=== PATIENT | female | born 1985 | race Caucasian/White ===

== ENCOUNTER 2020-01-06 12:10 | Observation (INO) | payer BC, MEDICAID, SELFPAY ==
[2020-01-06] VITALS (19 sets, daily range): BP systolic 108–130; BP diastolic 70–87; PULSE 74–99; RESP 16–28; TEMP 36.2–37.1; O2SAT 96–100; BMI 29.2
--- NOTE | 2020-01-06 12:39 | ED_ITS ---
HPI - Abdominal Pain General: Chief Complaint: Abdominal Pain Stated Complaint: Vaginal Bleeding/ Time Seen by Provider: 01/06/20 12:31 History of Present Illness: HPI narrative: 34-year-old female who was directed to the emergency room by Dr. Izabel Hopson from her office. She had an abnormal quant and also has a right ovarian mass that it previously measured 9 cm is now measuring 10 cm with free fluid she been to a couple of other local hospitals and been dismissed Dr. Hopson is concerned she may have a ectopic . He is having worsening abdominal pain at this point. MD elicited complaint: abdominal pain Pertinent past history: other (Positive test) Onset (ago): day(s) Pain Consistency: constant Location: Suprapubic and Pelvis Quality: cramping Radiation: back Migration to: no migration Exacerbating factors: movement Relieving factors: rest Associated Symptoms: Reports bloating and GI cramping; Denies anorexia, belching, change in stool character, chills, coffee ground emesis, constipation, diarrhea, dyspepsia, dysuria, excessive flatus, fever(s), heartburn, hematochezia, hematuria, hematemesis, fecal incontinence, loose stools, melena, nausea, poor appetite and vomiting Review of Systems Const: Denies: fever(s) or chills ENMT: Denies: throat pain, ear or mastoid pain, nasal discharge or nasal congestion Card: Denies: chest pain, edema, dyspnea on exertion or orthopnea Resp: Denies: dyspnea, productive cough or non-productive cough GI: Reports: bloating and GI cramping; Denies: nausea, vomiting, hematemesis, coffee ground emesis, heartburn, diarrhea, constipation, belching, excessive flatus, fecal incontinence, change in stool character, hematochezia or melena : Denies: dysuria or hematuria Skin/Breast: Denies: rash or pruritus PFSH ED PFSH: Medical History Acute cystitis 01/06/2020: States on antibiotic since 01/01. Right tubal without intrauterine Treated by laparoscopic right salpingectomy on 01/06/2020 Surgical History H/O hand surgery Had surgery on a finger. H/O unilateral salpingectomy (01/06/20) Laparoscopic right salpingectomy for treatment of tubal . Performed by Dr. Naqvi at [facility] in [place], [place] H/O wisdom tooth extraction Family History Mother Uterine cancer Grandfather CAD (coronary artery disease) Social History Smoking and tobacco status: never smoked Alcohol intake: current Alcohol intake frequency: few times a month Substance/Drug Use: never Physical Exam Const: COMMON NORMALS: no acute distress GENERAL APPEARANCE: cooperative and comfortable ORIENTATION/CONSCIOUSNESS: Yes awake, Yes oriented to person, Yes oriented to place and Yes oriented to time HENMT: COMMON NORMALS: normocephalic, atraumatic and hearing grossly normal bilaterally HEAD & SCALP: normocephalic and atraumatic Neck/C-Spine: COMMON NORMALS: no JVD Resp: COMMON NORMALS: normal respiratory effort, No retractions, No use of accessory muscles and clear to auscultation bilaterally AUSCULTATION: clear to auscultation bilaterally Cardio: COMMON NORMALS: no JVD, regular rate, regular rhythm and No murmurs present (Cardio) RATE: regular rate RHYTHM: regular rhythm GI: COMMON NORMALS: No hepatosplenomegaly present AUSCULTATION: Yes normoactive bowel sounds PALPATION: Yes Tenderness to palpation present (GI) (Prepubic and pelvic pain), No Guarding due to palpation present (GI) and Yes No hepatosplenomegaly present Extremity: COMMON NORMALS: normal to inspection, capillary refill normal, no clubbing, cyanosis or edema, no calf tenderness and no pedal edema Neuro: SENSORIUM/ORIENTATION: Yes oriented to person, Yes oriented to place and Yes oriented to time Skin: COMMON NORMALS: no rashes or lesions noted GENERAL SKIN EXAM: no rashes or lesions noted Course Vital Signs: Vital signs: Vital Signs Temperature 98.2 F 01/07/20 12:59 Pulse Rate 83 01/07/20 12:59 Respiratory Rate 14 01/07/20 12:59 Blood Pressure 94/61 01/07/20 12:59 Pulse Oximetry 97 01/07/20 12:59 MDM - Abdominal Pain MDM Narrative: Medical decision making narrative: Evidence of an ectopic on ultrasound as well as blood in the pelvis discussed with Dr. Naqvi, he will be taking patient directly to surgery. Lab Data: Labs: Lab Results 01/06/20 01/06/20 01/06/20 Range/Units 12:49 12:49 12:49 WBC 8.4 (4.0-10.0) 10^3/ uL RBC 3.71 L (4.1-5.3) 10^6/u L Hgb 10.7 L (11.5-15.3) g/dL Hct 33.5 L (37.0-47.0) % MCV 90.3 (81-99) fL MCH 28.8 (28.0-34.0) pg MCHC 31.9 (30.0-36.0) g/dL RDW 12.2 (12.1-15.1) % Plt Count 401 H (130-400) 10^3/c mm MPV 10.7 H (7.4-10.4) fL Neut % (Auto) 78.8 % Lymph % (Auto) 11.8 % [place] % (Auto) 7.7 % Eos % (Auto) 1.0 % Baso % (Auto) 0.5 % Neut # (Auto) 6.64 (1.8-7.7) 10^3/u L Lymph # (Auto) 1.0 (0.8-4.8) 10^3/u L [place] # (Auto) 0.7 (0.2-0.9) 10^3/u L Eos # (Auto) 0.1 (0.0-0.8) 10^3/u L Baso # (Auto) 0.0 (0.0-0.1) 10^3/u L Nucleated RBC % (a uto) 0 % Nucleated RBCs # 0.0 /100WBC Sodium 132 L (136-145) mmol/L Potassium 4.3 (3.5-5.1) mmol/L Chloride 98 (98-107) mmol/L Carbon Dioxide 26 (22-29) mmol/L Anion Gap 12.3 (5-19) BUN 12 (6-20) mg/dL Creatinine 0.4 L (0.5-0.9) mg/dL GFR Calculation 185.0 H (90-130) mL/min Glucose 93 (65-115) mg/dL Calculated Osmolal ity 273 L (285-295) mOsm/k g Calcium 9.0 (8.5-10.5) mg/dL Total Bilirubin 0.5 (0.15-1.2) mg/dL AST 22 (0-32) U/L ALT 15 (0-33) U/L Alkaline Phosphata se 83 (35-105) IU/L Total Protein 7.2 (6.6-8.7) g/dL Albumin 4.1 (3.5-5.2) g/dL Globulin 3.1 (1.3-4.6) g/dL Ser , [place] i-Qnt 47.00 mIU/mL Blood Type B Positive Rho(D) Type Positive Antibody Screen Negative Discharge Plan Discharge Admit Provider: Arnoldo Naqvi Clinical Impression: Right tubal without intrauterine , Acute cystitis Condition: Stable Discharge Orders: Discharge Order (Routine); Ordered 01/07/20 Ordered By: Arnoldo Naqvi Discharge Diet: Regular Discharge Activity: Limit activity as instructed Interventions: ED Discharge Assessment Last Done: 01/06/20 14:03 ED Charges Last Done: 01/06/20 14:03 Discharge Date/Time: 01/06/20 14:04 Coding Level of Care Code ED Bicycle Taxi Driver for Heidy Ansari
[2020-01-06 13:07] LABS: Basophils % 0.5 %; Eosinophils # 0.1 10^3/uL (0.0-0.8); Hematocrit 33.5 % (37.0-47.0); Hemoglobin 10.7 g/dL (11.5-15.3); Lymphocytes % 11.8 %; Mean Corpuscular HGB Conc 31.9 g/dL (30.0-36.0); Mean Corpuscular Hemoglobin 28.8 pg (28.0-34.0); Mean Corpuscular Volume 90.3 fL (81-99); Mean Platelet Volume 10.7 fL (7.4-10.4); Monocytes # 0.7 10^3/uL (0.2-0.9); Monocytes % 7.7 %; Neutrophils # 6.64 10^3/uL (1.8-7.7); Neutrophils % 78.8 %; Nucleated Red Blood Cells % 0 %; Platelet Count 401 10^3/cmm (130-400); Red Blood Count 3.71 10^6/uL (4.1-5.3); Red Cell Distribution Width 12.2 % (12.1-15.1); White Blood Count 8.4 10^3/uL (4.0-10.0)
--- NOTE | 2020-01-06 13:12 | PC.NURSE ---
Pt moved to room 4, report given to ANGELA Bernal. Dr Naqvi at bedside.
[2020-01-06 13:31] LABS: Alanine Aminotransferase 15 U/L (0-33); Albumin Level 4.1 g/dL (3.5-5.2); Alkaline Phosphatase 83 IU/L (35-105); Anion Gap 12.3 (5-19); Aspartate Amino Transferase 22 U/L (0-32); Blood Urea Nitrogen 12 mg/dL (6-20); Carbon Dioxide 26 mmol/L (22-29); Chloride 98 mmol/L (98-107); Globulin 3.1 g/dL (1.3-4.6); Glucose 93 mg/dL (65-115); Osmolality Calculated 273 mOsm/kg (285-295); Potassium 4.3 mmol/L (3.5-5.1); Sodium 132 mmol/L (136-145); Total Bilirubin 0.5 mg/dL (0.15-1.2); Total Protein 7.2 g/dL (6.6-8.7)
--- NOTE | 2020-01-06 13:51 | PM.HP ---
Providers/Chief Complaint Chief Complaint: Vaginal Bleeding/ History of Present Illness Wen Owens is a 34 year old female 5, para 4-0-0-4 who presented to the ER with abdominal pain and possible ectopic . She reports that she has had bleeding off and on for the last couple weeks. On Thursday, 12/29, she reported having heavy bleeding and went to [place] where she was evaluated and sent home. She has been following with Dr. Hopson in [place] since that time. Dr. Hopson had reported that she had a positive hCG with a quantitative hCG of 809 on 01/04/2020. She has had several ultrasounds performed. And had been noted to have an enlarging right adnexal mass. This was thought to represent either a ovarian torsion or ruptured ectopic . She was sent to the ER for further evaluation today. Patient reports that she has had light bleeding off and on today. She has been having pain in the lower abdomen which is localized into the right lower quadrant/pelvic area. It ranges from a cramping to a sharp severe stabbing pain. She denied radiation of the pain into her back. She states the pain is worse with sitting up and better with lying down. She denied any pain with deep breathing. She denied any lightheadedness or dizziness. Review of Systems Const: Denies: fever(s) or chills ENMT: Denies: throat pain or nasal congestion Card: Denies: chest pain, palpitations or lightheadedness Resp: Denies: dyspnea, productive cough, non-productive cough or wheezing GI: Reports: abdominal pain and nausea; Denies: vomiting, diarrhea or constipation : Reports: urinary frequency and vaginal bleeding; Denies: difficulty voiding, dysuria, urinary urgency, genital pruritis or vaginal discharge Neuro: Denies: headache(s) or dizziness Psych: Denies: anxiety or depression Endo: Denies: cold intolerance or hot flashes [place]/Lymph: Denies: easy bruising or easy bleeding Medications/Allergies Home Medications Medication Instructions Recorded Confirmed Last Taken Type Vitamin D3 1 tab PO DAILY 01/06/20 01/06/20 Unknown History cephalexin [Keflex] 500 mg PO BID 01/06/20 01/06/20 01/06/20 History Allergies Allergy/AdvReac Type Severity Reaction Status Date / Time promethazine [From Phenergan] Allergy ALGY-Anaphy Verified 01/06/20 13:05 laxis PFSH Acute PFSH: Medical History (Updated 01/06/20 @ 14:11 by Arnoldo Naqvi MD) Acute cystitis 01/06/2020: States on antibiotic since 01/01. Surgical History (Updated 01/06/20 @ 14:03 by Arnoldo Naqvi MD) H/O hand surgery Had surgery on a finger. H/O wisdom tooth extraction Family History (Updated 01/06/20 @ 14:04 by Arnoldo Naqvi MD) Mother Uterine cancer Grandfather CAD (coronary artery disease) Social History (Updated 01/06/20 @ 14:05 by Arnoldo Naqvi MD) Smoking and tobacco status: never smoked Alcohol intake: current Alcohol intake frequency: few times a month Substance/Drug Use: never Female Reproductive History: : 5 Vitals/I&O/Wt Last Vital Signs Temp 98.7 F 01/06/20 12:22 Pulse 96 01/06/20 12:56 Resp 16 01/06/20 12:56 BP 108/80 01/06/20 12:56 Pulse Ox 96 01/06/20 12:56 Weight last 48 hrs Weight 165 lb Physical Exam Const: COMMON NORMALS: no acute distress, average body habitus, alert and well nourished GENERAL APPEARANCE: well developed ORIENTATION/CONSCIOUSNESS: Yes oriented to person, Yes oriented to place and Yes oriented to time Neck/C-Spine: COMMON NORMALS: Thyroid normal GENERAL: Yes trachea midline THYROID: Thyroid normal Resp: COMMON NORMALS: normal respiratory effort and clear to auscultation bilaterally AUSCULTATION: clear to auscultation bilaterally Cardio: COMMON NORMALS: regular rate, regular rhythm, No gallops present (Cardio), No murmurs present (Cardio) and No rub (Cardio) RATE: regular rate RHYTHM: regular rhythm GI: COMMON NORMALS: Soft to palpation, No hepatosplenomegaly present and no masses AUSCULTATION: Yes normoactive bowel sounds PALPATION: Yes Soft to palpation, Yes Tenderness to palpation present (GI) (Moderate right lower quadrant/pelvic tenderness), Yes Guarding due to palpation present (GI) (Voluntary), Yes No hepatosplenomegaly present, No Hernia present and Yes Rebound tenderness present (Right lower quadrant/pelvic area) : EXTERNAL FEMALE EXAM: No Hernia present Neuro: SENSORIUM/ORIENTATION: Yes alert, Yes oriented to person, Yes oriented to place and Yes oriented to time Psych: COMMON NORMALS: normal affect MOOD & AFFECT: Yes euthymic mood Skin: COMMON NORMALS: no rashes or lesions noted GENERAL SKIN EXAM: no rashes or lesions noted Data : 01/06/20 12:49 01/06/20 12:49 Other Labs: 01/06/2020: 12: 49 hC Outside Lab 01/04/2020: hC US OB: I personally reviewed and interpreted this imaging study as follows: My impression: Right adnexal mass with hypoechoic area within the mass present with free fluid with debris present within the fluid. Some of this suspicious for clot. No intrauterine seen. A&P Assessment and plan (1) Acute right lower quadrant pain: Status: Acute (2) Adnexal mass: Status: Acute (3) Positive test: Status: Acute Additional A&P Information Patient presents with acute right lower quadrant pain with a right adnexal mass and positive test. The adnexal mass has been enlarging per report from Dr. Hopson who has been following her with the . Based upon ultrasound today, she has free fluid in the abdomen with findings suggestive of clot. No intrauterine was seen on ultrasound. hCG has dropped from 109 to 47 over the last 2 days. This would indicate either a miscarriage having occurred or a tubal having occurred. The appearance of the adnexal mass is more suspicious for a tubal . Possible ovarian torsion or ruptured ovarian cyst also must be considered. This information and findings were discussed with the patient. Recommendations to proceed to surgical evaluation were discussed. I recommended a laparoscopy with the possibility of removing tube and ovary. Discussed with patient the possibility of having to open the abdomen, laparotomy. Risks of the surgery including bleeding to the point of needing a blood transfusion, infection, and injury to intra-abdominal organs including bowel, bladder, blood vessels, nerves, and ureters were discussed. Possible stay in the hospital after surgery was discussed. Questions were answered. Patient agrees to proceed to surgical evaluation and treatment. Patient to be scheduled for: Laparoscopy, possible salpingo-oophorectomy, possible laparotomy. Attestations Medical Necessity Statement*: Patient with suspected ectopic , going to the OR. Coding Level of Care Code Acute Certified Fraud Examiner for Heidy Ansari Diagnoses Acute right lower quadrant pain R10.31 Adnexal mass N94.89 Positive test Z32.01
--- NOTE | 2020-01-06 14:17 | ANES.PREANE2 ---
Pre-Anesthetic Assessment Pre-Anesthetic Assessment: Height/Weight: Height 1.6 m Weight 74.843 kg Temp Pulse Resp BP Pulse Ox 98.7 F 83 18 117/78 100 01/06/20 12:22 01/06/20 13:54 01/06/20 13:54 01/06/20 13:54 01/06/20 13:54 Preop Diagnosis: possible ectopic Proposed Procedure: Operation Date: 01/06/20 14:30 Proposed Procedures p Laparoscopic Ectopic (Right) - Arnoldo Naqvi MD Familial anesthetic complications: none Was Beta Ramon taken within 24 hours: N/A Last intake: Intake Last Liquid Date 01/06/20 Last Liquid Time 09:15 Last Solid Date 01/06/20 Last Solid Time 08:30 Social: Social History: Tobacco (occassional) Exam: Pre-Anes Outpt Exam: alert, oriented x 3, clear to auscultation bilaterally and regular rate & rhythm Airway: Submandibular: WNL Cervical ROM: WNL MP: 2 Dentition: Full History/ROS: No significant history except as noted and No significant complaints CV/HEM: CV/HEM: None reported : : UTI Hepatic: Hepatic: None reported GI: GI: GERD Metabolic: Metabolic: None reported Musc/skel: Musc/skel: None reported Neuropsych: Neuropsych: None reported Anesthetic Plan: ASA status: 2E Anesthesia: General PFSH Anesthesia PFSH: Medical History (Updated 01/06/20 @ 14:11 by Arnoldo Naqvi MD) Acute cystitis 01/06/2020: States on antibiotic since 01/01. Surgical History (Updated 01/06/20 @ 14:03 by Arnoldo Naqvi MD) H/O hand surgery Had surgery on a finger. H/O wisdom tooth extraction Family History (Updated 01/06/20 @ 14:04 by Arnoldo Naqvi MD) Mother Uterine cancer Grandfather CAD (coronary artery disease) Social History (Updated 01/06/20 @ 14:05 by Arnoldo Naqvi MD) Smoking and tobacco status: never smoked Alcohol intake: current Alcohol intake frequency: few times a month Substance/Drug Use: never Female Reproductive History: : 5 Data Anesthesia CBC & Chem 7: 01/06/20 12:49 01/06/20 12:49 Other Labs: Laboratory Results - last 48 hr 01/06/20 01/06/20 01/06/20 12:49 12:49 12:49 WBC 8.4 RBC 3.71 L Hgb 10.7 L Hct 33.5 L MCV 90.3 MCH 28.8 MCHC 31.9 RDW 12.2 Plt Count 401 H MPV 10.7 H Neut % (Auto) 78.8 Lymph % (Auto) 11.8 [place] % (Auto) 7.7 Eos % (Auto) 1.0 Baso % (Auto) 0.5 Neut # (Auto) 6.64 Lymph # (Auto) 1.0 [place] # (Auto) 0.7 Eos # (Auto) 0.1 Baso # (Auto) 0.0 Nucleated RBC % (auto) 0 Nucleated RBCs # 0.0 Sodium 132 L Potassium 4.3 Chloride 98 Carbon Dioxide 26 Anion Gap 12.3 BUN 12 Creatinine 0.4 L GFR Calculation 185.0 H Glucose 93 Calculated Osmolality 273 L Calcium 9.0 Total Bilirubin 0.5 AST 22 ALT 15 Alkaline Phosphatase 83 Total Protein 7.2 Albumin 4.1 Globulin 3.1 Ser , Semi-Qnt 47.00 Blood Type B Positive Rho(D) Type Positive Antibody Screen Negative Cardiac Studies: No Data to Display
[2020-01-06] MEDS: citric acid-sodium citrate 30 mL UDC PO (14:23)
[2020-01-06] MEDS: sodium chloride 0.9% 1,000 ML 30 ML IV (14:26)
--- NOTE | 2020-01-06 16:28 | PM.OP ---
Operative Report Date of procedure: January 06, 2020 Pre-op Diagnosis: possible ectopic Post-op Diagnosis: Rupture right tubal Procedure Done: Laparoscopic right salpingectomy for treatment of tubal Specimens removed/disposition: Right tube with ectopic Surgeon: Arnoldo Naqvi Manager Of Manufacturing: None Anesthesia: General Estimated blood loss (mL): 400 (blood and clots) IV fluids (mL): 1,500 Urine output (mL): 200 Complications: None Findings: Clots and blood in abdomen. Walled off area with small bowel adhesions to anterior abdominal wall, sealing off the pelvis. Ruptured, right tubal Brief History: Patient is a 34-year-old white female 5, para 4-0-0-4 who presented to the ER with abdominal pain with possible ectopic . On presentation, she stated she had been bleeding off and on for the last couple weeks. On Thursday, 12/29, she reported heavy bleeding and went to [place] where she was evaluated and sent home. She has been followed by Dr. Hopson in [place] since that time. She had an ultrasound today with Dr. Hopson which showed fluid in the pelvis, right adnexal mass which had enlarged, and no intrauterine . Dr. Hopson had requested that she go to the hospital for further evaluation and possible surgery, patient did not want to go back to [place] and as a result, presented to [facility] ER. On review of her ultrasound performed today, she had free fluid in the pelvis with what appeared to be clot present and a mass in the right adnexal region. She had localized right lower quadrant/pelvic pain. Based upon these findings I was suspicious for ruptured ctopic . I discussed this with the patient and she is presenting for surgical evaluation. Procedure: Patient was taken to the operating room where general anesthesia was obtained. She was prepped and draped in usual sterile fashion in dorsal supine position with legs in Estrada style stirrups. Sequential compression boots had been placed prior to starting the case. Rawls catheter was inserted. Weighted speculum was placed in the vagina and cervix was grasped with a single-tooth tenaculum. ZUMI was then inserted without difficulty. Within the lower edge of the navel, the skin was injected with 1% lidocaine with epinephrine. Skin incision was made with the knife in the lower edge and a size 10 trocar and sheath were inserted under direct visualization using an Optiview type technique. Upon removal of the trocar, scope was reinserted confirming intra-abdominal placement. Blood was identified upon entry into the abdominal cavity. Abdomen was inflated and the belly was inspected. Patient was noted to have small amount of blood in the upper abdomen. At the pelvis area, she had adhesions between the small bowel and omentum to the anterior abdominal wall with blood visualized behind the thin adhesions. In the left lower quadrant lateral to the inferior epigastric vessels, the skin was injected with 1% lidocaine with epinephrine. Skin incision was made with a knife and 5 mm trocar and sheath were inserted under direct visualization. The adhesions between the bowel, omentum, and anterior abdominal wall were able to be easily taken down bluntly. Upon doing this multiple well-formed clots were encountered. No further adhesions were identified below the initial band of adhesions. A second site was placed in the midline approximately 3 cm above the pubic symphysis. Skin incision was made with a knife and a size 10 trocar and sheath inserted under direct visualization. Using a large bore suction, the clots were broken up and suctioned out of the abdomen. The uterus was initially uncovered and identified. During this process the ovaries and tubes were also eventually identified. Approximately midway along the right tube was an area of obvious rupture of the tube with the surrounding tube being approximately 3 times bigger in diameter than the rest of the tube. No active bleeding was seen from the rupture site. In the right lower quadrant lateral to the inferior epigastric vessels, the skin was injected with 1% lidocaine with epinephrine. Skin incision was made with a knife and a 5 mm trocar and sheath were inserted under direct visualization. Using the Voyant sealing device, the mesosalpinx was sealed and cut and carried up to the corner of the uterus. The fallopian tube was then sealed at the corner of the uterus and completely excised. The tube was too large to bring out through the 10 mm site. As a result a laparoscopic pouch was passed through the site and the tube placed in the pouch. This was then brought up through through the incision after it enlargement of the fascial incision at the suprapubic site. The trocar was then reinserted. Clots were then further broken down and suction from the abdomen, removing the clots from the posterior cul-de-sac. However, not all of the clot could be removed due to the dense nature of the clots and being well adherent to peritoneal structures. The area of dissection was irrigated and thoroughly inspected. It was noted to be hemostatic. The left tube and ovary were normal in appearance. The right ovary was normal in appearance. Uterus was normal in appearance. Using Endo Close needle, 3 stitches of 0 Vicryl suture were passed through the fascia and brought out on the contralateral side of the incision at the suprapubic site. When tied, these closed the fascial defect well and allowed pneumoperitoneum to be maintained. The abdomen was then deflated and the rest the sleeves removed. Skin was reapproximated using 4-0 Vicryl suture. Skin glue was applied to the sites. ZUMI was removed. There was minimal bleeding from the cervix at the tenaculum site. Sponge and needle counts were correct. Drains: None. Postoperative Status: Patient was transferred to recovery room in satisfactory condition.
--- NOTE | 2020-01-06 16:35 | SUR.PHASEI ---
1632 PATIENT TO PACU FROM OR. RR EVEN AND UNLABORED. CAST CATH IN PLACE. DRESSING TO ABDOMEN, CDI.
[2020-01-06] MEDS: ondansetron 2 mg/ML SDV 2 mL 4 MG IVP ×2 (16:38→16:44)
[2020-01-06] MEDS: metoclopramide 5 mg/mL SDV 2 mL 10 MG IVP ×2 (16:47→17:01)
[2020-01-06] MEDS: sodium chloride 0.9% 1,000 ML 30 ML (16:56)
--- NOTE | 2020-01-06 17:32 | SUR.PHASEI ---
1717 PATIENT TO OB FROM PACU. RR EVEN AND UNLABORED. PATIENT CONTINUES TO C/O NAUSEA. TOLERATING CRACKERS AND SPRITE. RATES PAIN 5/10, DECLINED PAIN MEDS DUE TO NAUSEA. AMBULATORY FROM GURNEY TO BED WHEN ARRIVING TO OB.
[2020-01-06] MEDS: morphine 4 mg/mL SDV 1 mL IVP ×2 (17:45→18:45)
[2020-01-06] MEDS: scopolamine 1.5 Patch 1 PATCH TRANSDERMA (19:16)
[2020-01-06] MEDS: ketorolac 30 mg/mL INJ IVP (22:36)
[2020-01-06] MEDS: dextrose 5%-lactated ringers 1,000 ML 125 ML IV (22:45)
[2020-01-07 00:40] VITALS: BP 110/74; PULSE 84; RESP 18; TEMP 36.6; O2SAT 96
--- NOTE | 2020-01-07 00:44 | PC.NURSE ---
SCD Pump placed at bedside and turned on. Pt. was encouraged to use IS breathing device.
[2020-01-07] MEDS: ondansetron 2 mg/ML SDV 2 mL 4 MG IVP (01:20)
[2020-01-07] MEDS: ondansetron 2 mg/ML SDV 2 mL 4 MG (01:27)
[2020-01-07] MEDS: HYDROcodone-acetaminophen 5-325 mg Tablet PO (01:30)
[2020-01-07 03:15] VITALS: BP 95/63; PULSE 67; RESP 16; TEMP 36.9; O2SAT 96
[2020-01-07] MEDS: ketorolac 30 mg/mL INJ IVP (04:51)
--- NOTE | 2020-01-07 05:42 | PC.NURSE ---
Blood draw wasn't successful and lab was called to attempt.
[2020-01-07 06:05] LABS: Hematocrit 27.9 % (37.0-47.0); Hemoglobin 8.9 g/dL (11.5-15.3); Mean Corpuscular HGB Conc 31.9 g/dL (30.0-36.0); Mean Corpuscular Hemoglobin 28.8 pg (28.0-34.0); Mean Corpuscular Volume 90.3 fL (81-99); Mean Platelet Volume 10.7 fL (7.4-10.4); Platelet Count 334 10^3/cmm (130-400); Red Blood Count 3.09 10^6/uL (4.1-5.3); Red Cell Distribution Width 12.3 % (12.1-15.1); White Blood Count 10.8 10^3/uL (4.0-10.0)
--- NOTE | 2020-01-07 09:53 | P.DS_ITS ---
Discharge Providers Date of Admission: 01/06/20 16:35 Date of Discharge: January 07, 2020 Attending Provider at Admission: Arnoldo Naqvi MD Attending Provider at Discharge: Arnoldo Naqvi MD Diagnoses at Discharge Discharge Diagnosis (1) Right tubal without intrauterine : Status: Acute Problem details: Treated by laparoscopic right salpingectomy on 01/06/2020 (2) Acute right lower quadrant pain: Status: Acute Reason for Visit Reason for Visit: Vaginal Bleeding/ Hospital Course Hospital Course: Patient is a 34-year-old female 5, now para 4-0-1-4 who had presented to the ER on 01/06/2020 with abdominal pain and possible ectopic . She had been sent in from Dr. Hopson due to her symptoms and finding on ultrasound earlier today performed at Dr. Hopson's office. Patient was being followed for a right adnexal mass with no intrauterine identified on ultrasound. Patient had been having abdominal pain and intermittent vaginal bleeding. Patient reported having been previously evaluated at [facility] in [place]. Because of her pain and findings on ultrasound, I had recommended that she proceed to surgical evaluation for suspected ectopic . Patient had agreed to this and was taken to the OR. She had a laparoscopic right salpingectomy for treatment of a right tubal . She had been found to have the omentum and small bowel having sealed off the pelvic area with well formed, organized clots filling the pelvis. An ectopic was identified with the right tube with the right tube having split open. There was no active bleeding from the tube at the time of the surgery. Her right tube was removed and clots were evacuated from the pelvis. Following surgery, patient was having significant nausea requiring parenteral antiemetics. As the anesthesia further wore off, she started having more pain issues also requiring parenteral medications. As a result she was kept through the night for nausea and pain management. Postoperative Day 1, 01/07/2020 Patient reports feeling much better this morning. She reports that the pain pills have controlled her pain adequately this morning. She denies any nausea or vomiting through most of the night and this morning. She does have a scopolamine patch on. She reports tolerating liquids this morning. She reports having lightheadedness with initial rising, but this has resolved. She denies problems with urination. She denies chest pains or difficulty breathing. Physical Exam: See below Plan Surgical findings were reviewed with her this morning. She is doing as expected this morning. Since the nausea and vomiting has currently resolved and her pain is controlled on oral medications, she is being discharged to home. Discharge instructions were discussed with her. Pain medication use at home was discussed. She was also instructed to leave the scopolamine patch on at this time and remove it Thursday morning. I recommend follow-up in approximately 2 weeks with either myself or with Dr. Hopson. Physical Exam Const: COMMON NORMALS: no acute distress, average body habitus, alert and well nourished GENERAL APPEARANCE: well developed ORIENTATION/CONSCIOUSNESS: Yes oriented to person, Yes oriented to place and Yes oriented to time Resp: COMMON NORMALS: normal respiratory effort and clear to auscultation bilaterally AUSCULTATION: clear to auscultation bilaterally Cardio: COMMON NORMALS: regular rate, regular rhythm, No gallops present (Cardio), No murmurs present (Cardio) and No rub (Cardio) RATE: regular rate RHYTHM: regular rhythm GI: COMMON NORMALS: Soft to palpation, No hepatosplenomegaly present and no masses INSPECTION: Yes incision (Laparoscopy sites are clean, dry, and intact. Skin glue present. Bruising present at the suprapubic site.) AUSCULTATION: Yes normoactive bowel sounds PALPATION: Yes Soft to palpation, Yes Tenderness to palpation present (GI) (Mild lower abdominal tenderness with palpation.), Yes No hepatosplenomegaly present and No Hernia present : EXTERNAL FEMALE EXAM: No Hernia present Extremity: COMMON NORMALS: no clubbing, cyanosis or edema and no calf tenderness Neuro: SENSORIUM/ORIENTATION: Yes alert, Yes oriented to person, Yes oriented to place and Yes oriented to time Psych: COMMON NORMALS: normal affect MOOD & AFFECT: Yes euthymic mood Urinary Catheter Management^: Rawls: Cath Placed During This Visit: yes Urinary Catheter Date of Insertion: 01/06/20 Urinary Catheter Time of Insertion: 16:00 Discharge Data Data Completed and Pending: Pending at discharge Category Date Time Status ES surgery / GI i mages Routine Exams 01/06/20 14:55 Taken Retype for Patiet s ABO/Rh Routine Lab 01/06/20 13:14 Ordered Pathology: Surgic al [PTH] Routine Pth 01/06/20 16:34 Ordered Labs from last 24 hours 01/07/20 01/06/2020 05:52 12:49 12:49 WBC 10.8 H 8.4 RBC 3.09 L 3.71 L Hgb 8.9 L 10.7 L Hct 27.9 L 33.5 L MCV 90.3 90.3 MCH 28.8 28.8 MCHC 31.9 31.9 RDW 12.3 12.2 Plt Count 334 401 H MPV 10.7 H 10.7 H Neut % (Auto) 78.8 Lymph % (Auto) 11.8 [place] % (Auto) 7.7 Eos % (Auto) 1.0 Baso % (Auto) 0.5 Neut # (Auto) 6.64 Lymph # (Auto) 1.0 [place] # (Auto) 0.7 Eos # (Auto) 0.1 Baso # (Auto) 0.0 Nucleated RBC % (a uto) 0 Nucleated RBCs # 0.0 Sodium 132 L Potassium 4.3 Chloride 98 Carbon Dioxide 26 Anion Gap 12.3 BUN 12 Creatinine 0.4 L GFR Calculation 185.0 H Glucose 93 Calculated Osmolal ity 273 L Calcium 9.0 Total Bilirubin 0.5 AST 22 ALT 15 Alkaline Phosphata se 83 Total Protein 7.2 Albumin 4.1 Globulin 3.1 Ser , [place] i-Qnt 47.00 Blood Type Rho(D) Type Antibody Screen 01/06/20 12:49 WBC RBC Hgb Hct MCV MCH MCHC RDW Plt Count MPV Neut % (Auto) Lymph % (Auto) [place] % (Auto) Eos % (Auto) Baso % (Auto) Neut # (Auto) Lymph # (Auto) [place] # (Auto) Eos # (Auto) Baso # (Auto) Nucleated RBC % (a uto) Nucleated RBCs # Sodium Potassium Chloride Carbon Dioxide Anion Gap BUN Creatinine GFR Calculation Glucose Calculated Osmolal ity Calcium Total Bilirubin AST ALT Alkaline Phosphata se Total Protein Albumin Globulin Ser , [place] i-Qnt Blood Type B Positive Rho(D) Type Positive Antibody Screen Negative Vitals: Last Vital Signs Temp 98.5 F 01/07/20 03:15 Pulse 67 01/07/20 03:15 Resp 16 01/07/20 03:15 BP 95/63 01/07/20 03:15 Pulse Ox 96 01/07/20 03:15 Discharge Plan Discharge Patient Disposition: Home Condition: Stable Prescriptions: New hydrocodone-acetaminophen 5-325 mg Tablet 1 - 2 tab PO Q6H PRN (Reason: Moderate To Severe Pain) Qty: 30 RF: 0 ibuprofen 800 mg Tablet 800 mg PO TID PRN (Reason: pain) Qty: 30 RF: 0 Continued Keflex 500 mg Capsule 500 mg PO BID RF: 0 Vitamin D3 1 tab PO DAILY RF: 0 Discharge Orders: Discharge Order (Routine); Ordered 01/07/20 Ordered By: Arnoldo Naqvi Referrals: Arnoldo Naqvi MD [Physician] - 2 weeks Discharge Diet: Regular Discharge Activity: Limit activity as instructed Patient Instructions: Ectopic , Ectopic (DC), Laparoscopic Salpingo-oophorectomy (DC), OB Discharge Report, OB Laproscopic Surgery - [facility] Activity Restrictions/Additional Instructions: May follow-up with either myself, Dr. Naqvi, or with Dr. Hopson in 2 weeks. Patient to leave the scopolamine patch on and remove it on Thursday morning, 01/08. Discharge Attestations Time Spent in Discharge Care*: less than 30 min Quality Metrics Clinical Quality Measures During this hospital stay, did patient experience: None Coding Level of Care Code Acute Narrative Writer for Chg Fwd Diagnoses Right tubal without intrauterine O00.101 Acute right lower quadrant pain R10.31
[2020-01-07] MEDS: docusate sodium 100 mg Capsule PO (09:59)
[2020-01-07 11:12] VITALS: BP 106/71; PULSE 66; RESP 16; TEMP 36.9; O2SAT 97
[2020-01-07 12:59] VITALS: BP 94/61; PULSE 83; RESP 14; TEMP 36.8; O2SAT 97
== END 2020-01-07 13:09 | disposition home or self-care (01) ==
LOC: ER 12:35 → OR 13:44 → OBGYN 16:37
PROVIDERS: Family Medicine; Admitting Provider Obstetrics & Gynecology; Visit Provider Obstetrics & Gynecology
PROC: (CPT 58661; 2020-01-06 14:30)
DX: O00.101 Right tubal pregnancy without intrauterine pregnancy (principal)
CPT/HCPCS: 59151; 12345; 36415; 80053; 84702; 85025; 85027; 86850; 86900; 88305; 96360; 96361; 96375; 99282; 99285; G0378; J0131; J1885; J2270; J2405; J2704; J2710; J2765; J3010; J3490; J7030

== ENCOUNTER → 2020-11-15 13:37 | Outpatient (BNVA) | payer MEDICAID, SELFPAY | PROVIDERS: Visit Provider Obstetrics & Gynecology | DX: Z36.87 Encounter for antenatal screening for uncertain dates (principal) | CPT/HCPCS: 76805 ==

== ENCOUNTER → 2021-02-25 10:42 | Outpatient (BNVA) | payer MEDICAID, SELFPAY | PROVIDERS: Visit Provider Obstetrics & Gynecology | DX: Z34.80 Encounter for supervision of other normal pregnancy, unspecified trimester (principal) | CPT/HCPCS: 81000; 87081 ==

== ENCOUNTER → 2021-03-11 09:56 | Outpatient (BNVA) | payer MEDICAID, SELFPAY | PROVIDERS: Visit Provider Obstetrics & Gynecology | DX: Z34.90 Encounter for supervision of normal pregnancy, unspecified, unspecified trimester (principal); Z20.822 Contact with and (suspected) exposure to COVID-19 | CPT/HCPCS: 81000; 87086; 87635 ==

== ENCOUNTER → 2021-03-14 09:28 | Outpatient (BNVA) | payer MEDICAID, SELFPAY | PROVIDERS: Visit Provider Obstetrics & Gynecology | DX: R39.9 Unspecified symptoms and signs involving the genitourinary system (principal) | CPT/HCPCS: 81000; 87086 ==

== ENCOUNTER 2021-03-17 10:10 | Inpatient (IN) | payer MEDICAID, SELFPAY ==
[2021-03-17] VITALS (58 sets, daily range): BP systolic 82–151; BP diastolic 39–86; PULSE 75–109; RESP 18; O2SAT 97–100; BMI 34.0
[2021-03-17 11:48] LABS: Basophils % 0.3 %; Eosinophils # 0.1 10^3/uL (0.0-0.8); Eosinophils % 0.9 %; Hematocrit 34.9 % (37.0-47.0); Hemoglobin 11.3 g/dL (11.5-15.3); Lymphocytes # 1.2 10^3/uL (0.8-4.8); Lymphocytes % 14.9 %; Mean Corpuscular HGB Conc 32.4 g/dL (30.0-36.0); Mean Corpuscular Hemoglobin 28.1 pg (28.0-34.0); Mean Corpuscular Volume 86.8 fl (81-99); Mean Platelet Volume 10.3 fL (7.4-10.4); Monocytes # 0.5 10^3/uL (0.2-0.9); Monocytes % 6.4 %; Neutrophils # 6.15 10^3/uL (1.8-7.7); Neutrophils % 77.1 %; Nucleated Red Blood Cells % 0 %; Platelet Count 312 10^3/cmm (130-400); Red Blood Count 4.02 10^6/uL (4.1-5.3)
[2021-03-17] MEDS: lactated ringers 1,000 ML 999 ML IV (12:43)
--- NOTE | 2021-03-17 12:59 | P.ANESASSM_ITS ---
Pre-Anesthetic Assessment Pre-Anesthetic Assessment: Height/Weight: Height 1.61 m Weight 88.646 kg Pulse BP 83 115/69 03/17/21 11:47 03/17/21 11:47 Preop Diagnosis: labor pain Proposed Procedure: epidural Familial anesthetic complications: none Was Beta Ramon taken within 24 hours: N/A Was Clonidine taken within 24 hours: N/A Exam: Pre-Anes Outpt Exam: alert, oriented x 3, clear to auscultation bilaterally and regular rate & rhythm Airway: Submandibular: WNL Cervical ROM: WNL MP: 1 Dentition: Full Pulmonary: Pulmonary: None reported CV/HEM: CV/HEM: Anemia : : None reported Hepatic: Hepatic: None reported GI: GI: None reported Metabolic: Metabolic: None reported Musc/skel: Musc/skel: None reported Neuropsych: Neuropsych: Anxiety, Bipolar and Depression Anesthetic Plan: ASA status: 2 Anesthesia: Regional (specify below) Risk of > 500 ml blood loss (7ml/kg in children): No Meds/Allergies Current Medications: Current Medications Generic Name Dose Route Start Last Admin Trade Name Freq PRN Reason Stop Dose Admin Lactated Ringer's 1,000 mls @ 999 m ls/hr 03/17/21 12:33 03/17/21 12:43 Lactated Ringers IV 999 mls/hr .Q1H1M PRN Administration See label comment s PFSH Anesthesia PFSH: Medical History Acute cystitis 01/06/2020: States on antibiotic since 01/01. Anxiety Bipolar disorder GERD (gastroesophageal reflux disease) Right tubal without intrauterine Treated by laparoscopic right salpingectomy on 01/06/2020 Surgical History H/O hand surgery Had surgery on a finger. H/O unilateral salpingectomy (01/06/20) Laparoscopic right salpingectomy for treatment of tubal . Performed by Dr. Naqvi at [facility] in [place], [place] H/O wisdom tooth extraction Family History Mother Uterine cancer Bleeding disorder factor 5 Hyperlipidemia Hypertension Grandfather No problems noted. Family/Other Bleeding disorder Maternal Aunts x2-factor 5 Hyperlipidemia Maternal Aunt Hypertension Maternal Aunt Grandmother Bleeding disorder Maternal Clotting disorder Maternal Hypertension Maternal Denies family history of Diabetes CAD (coronary artery disease) Chronic kidney disease (CKD) Cancer Stroke Social History Smoking and tobacco status: never smoked Alcohol intake: current Alcohol intake frequency: few times a month Data Anesthesia CBC & Chem 7: 03/17/21 11:22 Other Labs: Laboratory Results - last 48 hr 03/17/21 11:22 WBC 8.0 RBC 4.02 L Hgb 11.3 L Hct 34.9 L MCV 86.8 MCH 28.1 MCHC 32.4 RDW 15.0 Plt Count 312 MPV 10.3 Neut % (Auto) 77.1 Lymph % (Auto) 14.9 [place] % (Auto) 6.4 Eos % (Auto) 0.9 Baso % (Auto) 0.3 Neut # (Auto) 6.15 Lymph # (Auto) 1.2 [place] # (Auto) 0.5 Eos # (Auto) 0.1 Baso # (Auto) 0.0 Nucleated RBC % (auto) 0 Nucleated RBCs # 0.0 Cardiac Studies: No Data to Display
--- NOTE | 2021-03-17 13:28 | PM.OPHPUD ---
Labor & Delivery H&P Update Date of Procedure: March 17, 2021 Date H&P Performed: 03/11/21 H&P update information: I have reviewed H&P completed within last 30 days, I have examined patient prior to procedure, Changes to prior documentation as noted here and H&P is in [facility] EMR on date indicated Changes to previous documentation: Patient is having regular contractions and cervix is 6 cm 75% and -1 station-may be an early/active labor Admission Diagnosis: Preop diagnosis: labor pain
--- NOTE | 2021-03-17 13:31 | P.ANES_ITS ---
Anesthesia Procedures Procedure/Date: 03/17/21 epidural Procedure Narrative: epidural complete, bolus given, epidural pump initiated with FURNACE MAINTENANCE education given, vitals taken during procedure using OBIX system and satisfactory throughout, patient admits to decrease pain, report of procedure to OB RN Epidural: Time Out Performed: Yes Consents Signed: Procedure Consent Consent: requested by attending/covering physician, from patient, risks and benefits reviewed and patient agrees to proceed Lumbar Level: L3-L4 Epidural position: sitting Epidural procedure: sterile prep of area, 1% lidocaine to numb the area (3 mL), 18 g needle, negative for paresthesia passed, neg for paresthesia, test dose given, 1.5% xylocaine 1:200k epi (5 mL), 0.2% Ropivacaine bolus ml (5 mL), placed PCEA, no systemic response, sterile dressing applied, L.U.D. no apparent complications and 0.2% Ropiavacaine @ mls/hr (13 mL/hr)
[2021-03-17] MEDS: dextrose 5%-lactated ringers 1,000 ML 125 ML IV (14:34)
--- NOTE | 2021-03-17 17:19 | P.PCNOB_ITS ---
Delivery Note: Date of delivery: March 17, 2021 - PRE-DELIVERY DIAGNOSIS: 35-year-old 6 para 4-0-1-4 at 39 weeks and 1 days gestation GBS negative Multiparity desiring permanent sterilization-plan for interval sterilization Acid reflux on medication POST-DELIVERY DIAGNOSIS: Vaginal delivery on 03/17/2021 PROCEDURE: Vaginal delivery on 03/17/2021 ANESTHESIA: Epidural DELIVERING PHYSICIAN: Neda Branham FACOG PRE-DELIVERY COURSE: Ms. Owens is a 35-year-old 6 para 4-0-1-4 at 39 weeks and 1 day who presented to labor and delivery on 03/17/2021 for elective induction of labor at 10 AM . She had reported Kwame Lazcano contraction but overall appeared comfortable. On exam she was however noted to be 6 to 7 cm 70% and -3 station and she was admitted to labor and delivery in active labor. She was observed and she initially made minimal change however over the course of the next 4 to 5 hours had regular contractions. She wanted an epidural before she even started hurting an epidural was placed per her request. She continued to have contractions and was 9 cm at 3 PM. Artificial rupture of membranes was performed at this time with thick meconium fluid. She made rapid cervical change and was fully dilated at 4:20 PM and was set up in lithotomy position ready to push. tracing was category 1 thus far. DELIVERY NOTE: She was set up in lithotomy position and was pushing effectively. She was noted to be +3 station and continued pushing well. The head delivered in BECKY position, no nuchal cord was present. The shoulders and rest of the body followed with her next push. The baby's mouth and nose were suctioned and the baby was placed on the mother's belly. Once cord pulsations stopped the cord was clamped and cut. The placenta delivered spontaneously intact with membranes and was discarded. The fundus was noted to be firm and well contracted. The lower segment however was pretty boggy and uterine massage was done and 800 mcg of Cytotec was given rectally and with this uterine tone improved.. The vagina and cervix were inspected and no cervical or sulcal lacerations were noted. The perineum was intact. Baby boyKojo born at 5:03 PM on 03/17/2021 with 9/10, weighing 8 pounds 9 ounces, 3880 g, 21 inches long. Placenta was delivered spontaneously intact at 5/6 p.m. Cotyledons were intact , centrally inserted umbilical cord with 3 vessels noted. Estimated blood loss 250 mL. Complications-stable condition. This documentation was created by [employer] mental health unit lead psychologist software (known for inherent mental health unit lead psychologist error). Every effort was made to assure accuracy of mental health unit lead psychologist. Any obvious errors or omissions should be clarified with the author of the document. History History History 6 Term 4 Miscarriages/Ectopic 1 0 Living Children 4 Coding Level of Care Code Acute Senior Medical Director for Heidy Ansari
[2021-03-17] MEDS: benzocaine-menthol 78 gm Canister 1 SPRAY TOPICAL (19:59)
[2021-03-17] MEDS: HYDROcodone-acetaminophen 5-325 mg Tablet PO (20:20)
[2021-03-17] MEDS: ibuprofen 800 mg tablet PO (20:21)
[2021-03-18 00:50] VITALS: BP 120/62; PULSE 86; TEMP 36.2
[2021-03-18] MEDS: HYDROcodone-acetaminophen 5-325 mg Tablet PO (02:08)
[2021-03-18 03:11] VITALS: BP 108/60; PULSE 64
[2021-03-18 06:17] LABS: Hemoglobin 10.6 g/dL (11.5-15.3); Mean Corpuscular HGB Conc 32.1 g/dL (30.0-36.0); Mean Corpuscular Hemoglobin 28.3 pg (28.0-34.0); Mean Corpuscular Volume 88.2 fl (81-99); Mean Platelet Volume 10.4 fL (7.4-10.4); Platelet Count 252 10^3/cmm (130-400); Red Blood Count 3.74 10^6/uL (4.1-5.3); Red Cell Distribution Width 14.7 % (12.1-15.1); White Blood Count 11.5 10^3/uL (4.0-10.0)
[2021-03-18 07:15] VITALS: BP 108/75; PULSE 71; RESP 16; TEMP 36.9
[2021-03-18] MEDS: ibuprofen 800 mg tablet PO ×3 (10:03→22:11)
[2021-03-18] MEDS: prenatal vitamin Capsule 1 CAP PO (10:03)
[2021-03-18] MEDS: docusate sodium 100 mg Capsule PO ×2 (10:03→18:39)
[2021-03-18 11:15] VITALS: BP 110/72; PULSE 74; RESP 16; TEMP 36.7
--- NOTE | 2021-03-18 12:40 | PM.PN ---
Subjective Subjective: Interval history: SUBJECTIVE: Ms. Owens is doing well today. States that she is a little sore but denies any pain. She reports overall feeling well and denies nausea, vomiting, fever, chills and shortness of breath. She reports moderate bleeding and does report voiding without any difficulty. OBJECTIVE/PHYSICAL EXAM: Gen.: No acute distress Heart: S1-S2 heard, regular rate and rhythm Lungs: Clear to auscultation bilaterally Abdomen: Soft, fundus firm below umbilicus, Legs: No calf tenderness, trace bilateral pitting pedal edema. ASSESSMENT AND PLAN: 35-year-old 6 para 5-0-1-5 status post vaginal delivery on 03/17/2021 -Continue routine care. -Encourage ambulation and p.o. pain medication as needed -Anticipate discharge home tomorrow as patient was like to stay until tomorrow since she has a long drive back to her house. Vitals/I&O/Wt Last Vital Signs Temp 98.4 F 03/18/21 07:15 Pulse 71 03/18/21 07:15 Resp 16 03/18/21 07:15 BP 108/75 03/18/21 07:15 Pulse Ox 99 03/17/21 14:34 03/17/21 03/18/21 03/18/21 22:59 06:59 14:59 Output Total 1750 / 1750 150 / 1900 Balance -1750 / -750 -150 / -900 Weight last 48 hrs Weight 195 lb 6.878 oz Data : 03/18/21 06:07 Attestations Medical Necessity Statement*: Patient will need to stay 1-2 more midnights to recover from delivery Coding Level of Care Code Acute Wood Boatbuilder Apprentice for Chg Coty
[2021-03-18 16:00] VITALS: BP 112/77; PULSE 77; RESP 16; TEMP 36.6
[2021-03-18 22:15] VITALS: BP 108/76; PULSE 73; TEMP 36.3
[2021-03-19 04:58] VITALS: BP 97/61; PULSE 65; TEMP 36; TEMP 36.2
--- NOTE | 2021-03-19 07:49 | ANE.PACU2 ---
Inpatient post-anesthesia follow up: Airway intact: Yes Vital signs: Temperature 97.2 F Pulse Rate 65 Respiratory Rate 16 Blood Pressure 97/61 Pulse Oximetry 99 Oxygen Delivery Me thod Room Air Oxygen Flow Rate Fraction of Inspir ed Oxygen Hydration adequate: Yes Nausea and vomiting: No Pain level: 1 Mental status: Baseline Additional Comments: EMR review
[2021-03-19] MEDS: docusate sodium 100 mg Capsule PO (09:21)
[2021-03-19] MEDS: ibuprofen 800 mg tablet PO (09:21)
[2021-03-19] MEDS: prenatal vitamin Capsule 1 CAP PO (09:21)
[2021-03-19 12:23] VITALS: BP 98/61; PULSE 62
--- NOTE | 2021-03-19 15:11 | PM.OBGYDC ---
Discharge Providers [facility] SECURITY Date of Admission: 03/17/21 10:10 Date of Discharge: 03/19/21 Attending Provider at Admission: Neda Clement MD Attending Provider at Discharge: Neda Clement MD PRE-DELIVERY DIAGNOSIS: 35-year-old 6 para 4-0-1-4 at 39 weeks and 1 days gestation GBS negative Multiparity desiring permanent sterilization-plan for interval sterilization Acid reflux on medication POST-DELIVERY DIAGNOSIS: Vaginal delivery on 03/17/2021 PROCEDURE: Vaginal delivery on 03/17/2021 ANESTHESIA: Epidural DELIVERING PHYSICIAN: Neda Branham FACOG PRE-DELIVERY COURSE: Ms. Owens is a 35-year-old 6 para 4-0-1-4 at 39 weeks and 1 day who presented to labor and delivery on 03/17/2021 for elective induction of labor at 10 AM . She had reported Carrington Lazcano contraction but overall appeared comfortable. On exam she was however noted to be 6 to 7 cm 70% and -3 station and she was admitted to labor and delivery in active labor. She was observed and she initially made minimal change however over the course of the next 4 to 5 hours had regular contractions. She wanted an epidural before she even started hurting an epidural was placed per her request. She continued to have contractions and was 9 cm at 3 PM. Artificial rupture of membranes was performed at this time with thick meconium fluid. She made rapid cervical change and was fully dilated at 4:20 PM and was set up in lithotomy position ready to push. tracing was category 1 thus far. DELIVERY NOTE: She was set up in lithotomy position and was pushing effectively. She was noted to be +3 station and continued pushing well. The head delivered in BECKY position, no nuchal cord was present. The shoulders and rest of the body followed with her next push. The baby's mouth and nose were suctioned and the baby was placed on the mother's belly. Once cord pulsations stopped the cord was clamped and cut. The placenta delivered spontaneously intact with membranes and was discarded. The fundus was noted to be firm and well contracted. The lower segment however was pretty boggy and uterine massage was done and 800 mcg of Cytotec was given rectally and with this uterine tone improved.. The vagina and cervix were inspected and no cervical or sulcal lacerations were noted. The perineum was intact. Baby boy, Kojo born at 5:03 PM on 03/17/2021 with 9/10, weighing 8 pounds 9 ounces, 3880 g, 21 inches long. Placenta was delivered spontaneously intact at 5/6 p.m. Cotyledons were intact , centrally inserted umbilical cord with 3 vessels noted. Estimated blood loss 250 mL. Complications-stable condition. HOSPITAL COURSE: She underwent an uncomplicated vaginal delivery on 03/17/2021 . She did well on day 0 and was ambulating well, tolerating regular diet, voiding freely, passing flatus. She was breast-feeding without difficulty and bonding well with her son. Pain was well-controlled with by mouth pain medication. She denied nausea, vomiting, fever, chills, shortness of breath, leg pain. She had moderate vaginal bleeding. On day # 1 she continued to do well with stable vital signs and stable hemoglobin at 10.6. She wanted to stay another day she lives too far away from the hospital and did not want to drive late at night. She continued to do well with stable vital signs and denied any problems.. She was discharged home on day 2 in a stable condition. Warning signs for endometritis, mastitis, DVT/PE were reviewed with her. Post delivery activity restrictions were also reviewed with her at all her questions were answered to her satisfaction. She plans with sterilization for contraception. Given her history of previous ectopic I recommended total salpingectomy as opposed to sterilization and she preferred total salpingectomy. Medicaid consents had been incorrectly filled out previously and as a result repeat Medicaid consents were signed on 03/19/2021 and scanned into the clinic chart. Patient will be scheduled for an outpatient visit for preoperative for surgery. She will follow-up for visit with Dr. Hopson EXAM AT DISCHARGE: Gen.: No acute distress Heart: S1-S2 heard, regular rate and rhythm Lungs: Clear to auscultation bilaterally Abdomen: Soft, fundus firm below umbilicus Legs: No calf tenderness, trace bilateral pitting pedal edema pedal edema. CONDITION AT DISCHARGE: Stable This documentation was created by [employer] applied behavior science specialist software (known for inherent applied behavior science specialist error). Every effort was made to assure accuracy of applied behavior science specialist. Any obvious errors or omissions should be clarified with the author of the document. Reason for Visit Reason for Visit: induction of labor Information Peripartum Data: Delivery Method: Vaginal History History History 6 Term 4 Miscarriages/Ectopic 1 0 Living Children 4 Discharge Data Vitals: Last Vital Signs Temp 97.2 F L 03/19/21 04:58 Pulse 62 03/19/21 12:23 Resp 16 03/18/21 16:00 BP 98/61 03/19/21 12:23 Pulse Ox 99 03/17/21 14:34 Discharge Plan Discharge Patient Disposition: Home Condition: Stable Prescriptions: New ibuprofen 800 mg tablet 800 mg PO Q8H Qty: 30 RF: 0 docusate sodium 100 mg Capsule 100 mg PO BID PRN (Reason: constipation) Qty: 30 RF: 0 Continued Plus 29 mg iron- 1 mg tablet 1 tab PO DAILY RF: 0 Discontinued Ferretts 325 mg (106 mg iron) tablet 325 mg PO BID Qty: 60 RF: 2 Discharge Orders: Discharge Order (Routine); Ordered 03/19/21 Ordered By: Neda Clement Referrals: Rachell Barton MD [Physician] - (4 to 5-week for preop for tubal ligation) Patient Instructions: Depression (DC), Bleeding (DC), Preeclampsia and Eclampsia After Delivery (GEN), OB Discharge Report, OB Food/Drug Interaction Guide, Opioid Safety, OB Home Care, OB Vaginal Deliveries - [facility] Activity Restrictions/Additional Instructions: Pelvic rest for 6 weeks, no heavy lifting for 6 weeks Discharge Attestations [employer] [facility] [employer]UR[employer] Time Spent in Discharge Care*: greater than 30 min Coding Level of Care Code Acute Competitive Intelligence Analyst for Heidy Ansari
[2021-03-19 15:55] VITALS: RESP 18; TEMP 36.8
[2021-03-19 15:58] VITALS: BP 107/63; PULSE 65
== END 2021-03-19 16:55 | disposition home or self-care (01) | DRG 807 ==
LOC: OPOB 10:41 → OBGYN 17:19
PROVIDERS: Admitting Provider Obstetrics & Gynecology; Visit Provider Obstetrics & Gynecology
DX: O99.02 Anemia complicating childbirth (principal); Z37.0 Single live birth; D64.9 Anemia, unspecified; Z3A.39 39 weeks gestation of pregnancy; O99.344 Other mental disorders complicating childbirth; F31.9 Bipolar disorder, unspecified; F41.9 Anxiety disorder, unspecified; O99.62 Diseases of the digestive system complicating childbirth; K21.9 Gastro-esophageal reflux disease without esophagitis; Z87.59 Personal history of other complications of pregnancy, childbirth and the puerperium; O77.0 Labor and delivery complicated by meconium in amniotic fluid
CPT/HCPCS: 36415; 59025; 59409; 85025; 85027; 99211